=== PATIENT | female | born 1955 | race Caucasian/White ===

== ENCOUNTER 2017-03-10 18:39 | Emergency (ER) | payer BC, OTHER ==
[~2017-03-10] VITALS: Ht 160 cm; Wt 68.0 kg
[~2017-03-10 18:39] MED LIST: ALLO300T2 PO; ALPR0.5T3 PO; ASPI325T PO; GLUCTAB PO; LISI-366 PO; METO100T PO; OMEP20TA PO; SIMV20TA PO; VITA20002 PO
[2017-03-10 18:41] VITALS: BP 157/76; PULSE 65; RESP 16; TEMP 98; O2SAT 97
--- NOTE | 2017-03-10 19:06 | PD ---
HPI Chief Complaint: GI Complaint Time Seen by Provider: 19:05 Travel History International Travel<30 days: No Contact w/Intl Traveler<30days: No Traveled to known affect area: No History of Present Illness HPI 61 YO female with PMH of DM, HTN presents to the ED for evaluation of 5 day history of watery diarrhea. Gradual onset. Patient denies fever, chills, anorexia, abdominal pain, nausea, vomiting, melena, hematochezia, dysuria, back pain. She denies recent history of antibiotics. She denies changes in her current medications. She denies sick contacts. She treated with 2 doses of Imodium which did improve her symptoms but states that they returned shortly after. She tried the BRAT diet for the last 2 days with no improvement in symptoms. She endorses history of panendoscopy the last "5 or 6 years." She is followed by Dr. Christiano Shay. [facility] Past Medical History Hx Anticoagulant Therapy: Yes (325MG ASPIRIN) Atrial Fibrillation: Yes Anxiety: Yes Cancer: No Cardiovascular Problems: Yes (AFIB / HTN) Diabetes: Yes GERD: Yes Glaucoma: No Hepatitis: No Hiatal Hernia: No Hypertension: Yes Thyroid Disease: No Past Surgical History Gynecologic Surgery: Yes (TUBAL LIGATION-CONIZATION) Pacemaker: No Social History Alcohol Use: Yes (OCC) Tobacco Use: No Substance Use: No Allergies-Medications (Allergen,Severity, Reaction): Coded Allergies: Amiodarone (Verified Allergy, Mild, THYROID PROBLEMS, 03/10/17) Biaxin (Verified Allergy, Mild, NAUSEA, 03/10/17) Calan (Verified Allergy, Mild, BRUISING, 03/10/17) Reported Meds & Prescriptions Reported Meds & Active Scripts Active Flagyl (Metronidazole) 500 Mg Tab 500 Mg PO TID 7 Days Loperamide (Loperamide HCl) 2 Mg Cap 2 Mg PO DIRECTED PRN One capsule after each loose stool. Not to exceed 6 capsules per day. Reported Refresh Opth Drops (Polyvinyl Alcohol-Povidone Opth Drops) 1.4-0.6% Drops 1-2 Drop EACH EYE PRN PRN Align (Lactobacillus Rhamnosus (GG)) 4 Mg Cap 4 Mg PO DAILY Claritin (Loratadine) 10 Mg Cap 10 Mg PO DAILY Calcium (Calcium Carbonate) 600 Mg Tab 1 Tab PO DAILY Vitamin E (Vitamin E Acetate) 600 Unit Capsule 1,000 Units PO DAILY Simvastatin 20 Mg Tab 20 Mg PO DAILY Leflunomide 20 Mg Tab 20 Mg PO DAILY Omeprazole 20 Mg Tab 20 Mg PO DAILY Ranitidine (Ranitidine HCl) 150 Mg Tab 150 Mg PO DAILY Alprazolam 0.5 Mg Tab 0.5 Mg PO DAILY PRN Aspirin 325 Mg Tab 325 Mg PO DAILY Lisinopril 40 Mg Tab 40 Mg PO DAILY Metoprolol Tartrate 100 Mg Tab 100 Mg PO BID Metformin (Metformin HCl) 500 Mg Tab 750 Mg PO BIDPC With meals Review of Systems Except as stated in HPI: all other systems reviewed are Neg Physical Exam Narrative GENERAL: Well-nourished, well-developed nontoxic-appearing white female in no acute distress. SKIN: Focused skin assessment warm/dry. HEAD: Normocephalic. EYES: No scleral icterus. No injection or drainage. NECK: Supple, trachea midline. No JVD or lymphadenopathy. CARDIOVASCULAR: Regular rate and rhythm without murmurs, gallops, or rubs. RESPIRATORY: Breath sounds clear and equal bilaterally. No accessory muscle use. GASTROINTESTINAL: Abdomen soft, non-tender, nondistended. Active bowel sounds. MUSCULOSKELETAL: No cyanosis, or edema. Ambulatory. Moves easily from standing to sitting position. BACK: Nontender without obvious deformity. No CVA tenderness. Data Data Last Documented VS Vital Signs Date Time Temp Pulse Resp B/P Pulse Ox O2 Delivery O2 Flow Rate FiO2 03/10/17 20:00 105 18 145/91 96 Room Air 03/10/17 18:41 98.0 Orders Complete Blood Count With Diff (03/10/17 19:19) Comprehensive Metabolic Panel (03/10/17 19:19) Lipase (03/10/17 19:19) Lactic Acid (03/10/17 19:19) Iv Access Insert/Monitor (03/10/17 19:19) Ecg Monitoring (03/10/17 19:19) Oximetry (03/10/17 19:19) Sodium Chlor 0.9% 1000 Ml Inj (Ns 1000 M (03/10/17 19:19) Sodium Chloride 0.9% Flush (Ns Flush) (03/10/17 19:30) Labs Laboratory Tests Test 03/10/17 19:35 White Blood Count 5.5 TH/MM3 Red Blood Count 5.04 MIL/MM3 Hemoglobin 14.5 GM/DL Hematocrit 44.3 % Mean Corpuscular Volume 87.9 FL Mean Corpuscular Hemoglobin 28.8 PG Mean Corpuscular Hemoglobin 32.8 % Concent Red Cell Distribution Width 14.3 % Platelet Count 155 TH/MM3 Mean Platelet Volume 10.0 FL Neutrophils (%) (Auto) 53.6 % Lymphocytes (%) (Auto) 29.2 % Monocytes (%) (Auto) 14.5 % Eosinophils (%) (Auto) 1.9 % Basophils (%) (Auto) 0.8 % Neutrophils # (Auto) 2.9 TH/MM3 Lymphocytes # (Auto) 1.6 TH/MM3 Monocytes # (Auto) 0.8 TH/MM3 Eosinophils # (Auto) 0.1 TH/MM3 Basophils # (Auto) 0.0 TH/MM3 CBC Comment DIFF FINAL Differential Comment Sodium Level 140 MEQ/L Potassium Level 3.5 MEQ/L Chloride Level 109 MEQ/L Carbon Dioxide Level 22.4 MEQ/L Anion Gap 9 MEQ/L Blood Urea Nitrogen 17 MG/DL Creatinine 0.96 MG/DL Estimat Glomerular Filtration 59 ML/MIN Rate Random Glucose 81 MG/DL Lactic Acid Level 0.8 mmol/L Calcium Level 8.9 MG/DL Total Bilirubin 0.3 MG/DL Aspartate Amino Transf 44 U/L (AST/SGOT) Alanine Aminotransferase 35 U/L (ALT/SGPT) Alkaline Phosphatase 83 U/L Total Protein 7.2 GM/DL Albumin 3.4 GM/DL Lipase 143 U/L [facility] Medical Decision Making Medical Screen Exam Complete: Yes Emergency Medical Condition: Yes Differential Diagnosis Enteric pathogen versus UTI versus dehydration versus electrolyte abnormality versus other Narrative Course 61 YO female presents to the ED for evaluation of 5 day history of watery diarrhea. Gradual onset. Patient denies fever, chills, anorexia, abdominal pain, nausea, vomiting, melena, hematochezia, dysuria, back pain, recent history of antibiotics, changes in her current medications,sick contacts. She treated with 2 doses of Imodium which did improve her symptoms but states that they returned shortly after. She tried the BRAT diet for the last 2 days with no improvement in symptoms. She endorses history of panendoscopy the last "5 or [address] Christiano Shay. Vitals reviewed. Physical exam reveals a well- appearing white female in no acute distress. Abdominal exam is completely benign. We'll check electrolytes and if she is able to provide a stool sample sent for C. difficile and enteric pathogens. Labs unremarkable. Disposition per Dr. Guzamn. Diagnosis Primary Impression: Diarrhea Qualified Code: R19.7 - Diarrhea, unspecified type Referrals: Labor Relations Analyst Patient Instructions: Acute Diarrhea (GEN), General Instructions Additional Instructions: Rest, hydrate. Eat a bland diet for the next few days and gradually reintroduce new foods. Take Imodium as prescribed. Follow up wit the PCP or GI specialist. Return to the ED for any urgent or emergent medical condition. Med/Other Pt SpecificInfo: Prescription(s) given Scripts Metronidazole (Flagyl)500 Mg [id number] Mg PO TID 7 Days Ref 0 Prov:Omi Guzman MD 03/10/17 Loperamide 2 Mg Cap2 Mg PO DIRECTED PRN (DIARRHEA) #10 CAP Ref 0 One capsule after each loose stool. Not to exceed 6 capsules per day. Prov:Omi Guzman MD 03/10/17 Disposition: 01 DISCHARGE HOME Condition: Stable Aleah Cheema Mar 10, 2017 19:06
[2017-03-10] MEDS ORDERED: SODIUM CHLOR 0.9% 1000 ML INJ 1,000 ML IV SCH (19:19)
[2017-03-10] MEDS ORDERED: SODIUM CHLORIDE 0.9% FLUSH 10 ML FLUSH IV FLUSH PRN (19:30)
[2017-03-10 19:35] VITALS: BP 154/100; PULSE 115; RESP 18; O2SAT 95
[2017-03-10 19:36] VITALS: O2SAT 95
[2017-03-10] MEDS ORDERED: METF500T PO (19:55)
[2017-03-10] MEDS ORDERED: ALPR0.5T3 PO (19:55)
[2017-03-10] MEDS ORDERED: RANI150T PO (19:55)
[2017-03-10] MEDS ORDERED: CALC600T25 PO (19:55)
[2017-03-10] MEDS ORDERED: CLAR10CA3 PO (19:55)
[2017-03-10] MEDS ORDERED: SIMV20TA PO (19:55)
[2017-03-10] MEDS ORDERED: METO100T PO (19:55)
[2017-03-10] MEDS ORDERED: ALIG4CAP PO (19:55)
[2017-03-10] MEDS ORDERED: OMEP20TA PO (19:55)
[2017-03-10] MEDS ORDERED: LISI40TA PO (19:55)
[2017-03-10] MEDS ORDERED: ASPI325T PO (19:55)
[2017-03-10] MEDS ORDERED: REFRDRO EACH EYE (19:55)
[2017-03-10] MEDS ORDERED: VITA600C4 PO (19:55)
[2017-03-10] MEDS ORDERED: LEFL1TAB3 PO (19:55)
[2017-03-10 19:56] LABS: AUTOMATED NEUTROPHIL # 2.9 TH/MM3 (1.8-7.7); BASOPHIL % 0.8 % (0.0-2.0); EOSINOPHIL # 0.1 TH/MM3 (0-0.4); EOSINOPHIL % 1.9 % (0.0-4.0); HEMATOCRIT 44.3 % (35.0-46.0); HEMO FLAGS DIFF FINAL; LYMPH % 29.2 % (9.0-44.0); LYMPHOCYTE # 1.6 TH/MM3 (1.0-4.8); MEAN CELL VOLUME 87.9 FL (80.0-100.0); MEAN CORPUSCULAR HEMOGLOBIN 28.8 PG (27.0-34.0); MEAN CORPUSCULAR HGB CONC 32.8 % (32.0-36.0); MONO % 14.5 % (0.0-8.0); NEUT % 53.6 % (16.0-70.0); PLATELET COUNT 155 TH/MM3 (150-450); RED BLOOD COUNT 5.04 MIL/MM3 (4.00-5.30); RED CELL DISTRIBUTION WIDTH 14.3 % (11.6-17.2); WHITE BLOOD COUNT 5.5 TH/MM3 (4.0-11.0)
[2017-03-10 20:00] VITALS: BP 145/91; PULSE 105; RESP 18; O2SAT 96
[2017-03-10] MEDS ORDERED: LOPE2CAP PO (20:12)
[2017-03-10 20:24] LABS: ANION GAP 9 MEQ/L (5-15); AST (GOT) 44 U/L (15-37); BICARBONATE 22.4 MEQ/L (21.0-32.0); BLOOD UREA NITROGEN 17 MG/DL (7-18); CHLORIDE 109 MEQ/L (98-107); GLOMERULAR FILTRATION RATE 59 ML/MIN (>89); POTASSIUM 3.5 MEQ/L (3.5-5.1); SODIUM (NA) 140 MEQ/L (136-145)
[2017-03-10 20:25] LABS: ALT (GPT) 35 U/L (10-53)
[2017-03-10 20:27] LABS: ALKALINE PHOSPHATASE 83 U/L (45-117); TOTAL BILIRUBIN ADULT 0.3 MG/DL (0.2-1.0)
[2017-03-10] MEDS ORDERED: METR-1 PO ×2 (20:49→22:51)
--- NOTE | 2017-03-10 20:49 | PD ---
Data Data Last Documented VS Vital Signs Date Time Temp Pulse Resp B/P Pulse Ox O2 Delivery O2 Flow Rate FiO2 03/10/17 20:00 105 18 145/91 96 Room Air 03/10/17 18:41 98.0 Orders Complete Blood Count With Diff (03/10/17 19:19) Comprehensive Metabolic Panel (03/10/17 19:19) Lipase (03/10/17 19:19) Lactic Acid (03/10/17 19:19) Urinalysis - C+S If Indicated (03/10/17 19:19) Iv Access Insert/Monitor (03/10/17 19:19) Ecg Monitoring (03/10/17 19:19) Oximetry (03/10/17 19:19) Sodium Chlor 0.9% 1000 Ml Inj (Ns 1000 M (03/10/17 19:19) Sodium Chloride 0.9% Flush (Ns Flush) (03/10/17 19:30) Stool Ova And Parasite Screen (03/10/17 19:20) Enteric Path (Stool) (03/10/17 19:20) C Diff Toxin Pcr (03/10/17 19:59) Labs Laboratory Tests Test 03/10/17 19:35 White Blood Count 5.5 TH/MM3 Red Blood Count 5.04 MIL/MM3 Hemoglobin 14.5 GM/DL Hematocrit 44.3 % Mean Corpuscular Volume 87.9 FL Mean Corpuscular Hemoglobin 28.8 PG Mean Corpuscular Hemoglobin 32.8 % Concent Red Cell Distribution Width 14.3 % Platelet Count 155 TH/MM3 Mean Platelet Volume 10.0 FL Neutrophils (%) (Auto) 53.6 % Lymphocytes (%) (Auto) 29.2 % Monocytes (%) (Auto) 14.5 % Eosinophils (%) (Auto) 1.9 % Basophils (%) (Auto) 0.8 % Neutrophils # (Auto) 2.9 TH/MM3 Lymphocytes # (Auto) 1.6 TH/MM3 Monocytes # (Auto) 0.8 TH/MM3 Eosinophils # (Auto) 0.1 TH/MM3 Basophils # (Auto) 0.0 TH/MM3 CBC Comment DIFF FINAL Differential Comment Sodium Level 140 MEQ/L Potassium Level 3.5 MEQ/L Chloride Level 109 MEQ/L Carbon Dioxide Level 22.4 MEQ/L Anion Gap 9 MEQ/L Blood Urea Nitrogen 17 MG/DL Creatinine 0.96 MG/DL Estimat Glomerular Filtration 59 ML/MIN Rate Random Glucose 81 MG/DL Lactic Acid Level 0.8 mmol/L Calcium Level 8.9 MG/DL Total Bilirubin 0.3 MG/DL Aspartate Amino Transf 44 U/L (AST/SGOT) Alanine Aminotransferase 35 U/L (ALT/SGPT) Alkaline Phosphatase 83 U/L Total Protein 7.2 GM/DL Albumin 3.4 GM/DL Lipase 143 U/L [facility] Supervised Visit with HAILE: Yes Narrative Course The history, exam, and medical decision-making in the associated mid-level provider note were completed with my assistance. I reviewed and agree with the findings presented. I attest that I had a [id number] encounter with the patient on the same day, and personally performed and documented my assessment and findings in the medical record. *My assessment and Findings: 61 year-old woman with 5 days of watery diarrhea, little bit of cramping. No vomiting. No fevers. Looks well. Benign abdominal exam. No C. difficile risk factors. No sick contacts. Etiology unclear. We'll check stool studies if she is able to give a sample in the ED. Otherwise recommend loperamide, Flagyl, outpatient follow-up. Diagnosis Primary Impression: Diarrhea Qualified Code: R19.7 - Diarrhea, unspecified type Referrals: [facility] Patient Instructions: General Instructions, Acute Diarrhea (GEN) Additional Instruction: Rest, hydrate. Eat a bland diet for the next few days and gradually reintroduce new foods. Take Imodium as prescribed. Follow up wit the PCP or GI specialist. Return to the ED for any urgent or emergent medical condition. Scripts Metronidazole (Flagyl)500 Mg [id number] Mg PO TID 7 Days Ref 0 Prov:Omi Guzman MD 03/10/17 Loperamide 2 Mg Cap2 Mg PO DIRECTED PRN (DIARRHEA) #10 CAP Ref 0 One capsule after each loose stool. Not to exceed 6 capsules per day. Prov:Omi Guzman MD 03/10/17 Disposition: 01 DISCHARGE HOME Condition: Stable Omi Guzman MD Mar 10, 2017 20:49
== END 2017-03-10 23:11 | disposition home or self-care (01) ==
LOC: NEPD 18:39
DX: R19.7 Diarrhea, unspecified (principal); I10 Essential (primary) hypertension; E11.9 Type 2 diabetes mellitus without complications; Z79.84 Long term (current) use of oral hypoglycemic drugs
CPT/HCPCS: 80053; 83605; 83690; 85025; 99284; J7030